=== PATIENT | female | born 1995 | race African-American/Black ===

== ENCOUNTER 2018-09-21 13:29 | Emergency (ER) | payer MEDICAID ==
[~2018-09-21] VITALS: Ht 170.2 cm; Wt 104.5 kg
[2018-09-21 13:35] VITALS: Ht 170.2 cm; Wt 104.5 kg
[2018-09-21] MEDS ORDERED: EC-NAPROSYN500 MG PO (16:01)
[2018-09-21] MEDS ORDERED: ROBAXIN500 MG PO (16:01)
[2018-09-21 16:49] VITALS: BP 110/058
== END 2018-09-21 16:50 | disposition home or self-care (01) ==
LOC: D.ER 13:29
DX: M25.562 Pain in left knee (principal); M62.830 Muscle spasm of back; V43.52XA Car driver injured in collision with other type car in traffic accident, initial encounter; Y93.89 Activity, other specified; Y92.410 Unspecified street and highway as the place of occurrence of the external cause